=== PATIENT | female | born 1960 | race Caucasian/White ===

== ENCOUNTER 2019-03-24 11:03 | Emergency (ER) | payer OTHER ==
[2019-03-24] MEDS: LORATADINE 10 MG TAB PO (14:14)
== END 2019-03-24 14:25 | disposition home or self-care (01) ==
LOC: FTE 11:03
DX: L30.9 Dermatitis, unspecified (principal); Z87.891 Personal history of nicotine dependence
CPT/HCPCS: 99282; Z7502

== ENCOUNTER 2019-03-29 11:22 | Emergency (ER) | payer OTHER ==
[2019-03-29] MEDS: DIPHENHYDRAMINE 25 MG CAP PO (12:16)
[2019-03-29] MEDS: FAMOTIDINE 20 MG TAB PO (12:16)
== END 2019-03-29 12:57 | disposition home or self-care (01) ==
LOC: FTE 12:57
DX: K04.7 Periapical abscess without sinus (principal)
CPT/HCPCS: 99282; Z7502

== ENCOUNTER 2019-03-31 12:03 | Emergency (ER) | payer OTHER | END 2019-03-31 14:59 | disposition left against medical advice (07) | LOC: FTE 12:03 | DX: R21 Rash and other nonspecific skin eruption (principal) | CPT/HCPCS: 99282; Z7502 ==